=== PATIENT | female | born 1955 | race Caucasian/White ===

== ENCOUNTER 2016-11-25 17:07 | Emergency (ER) | payer BC, MEDICARE ==
[2016-11-25] MEDS ORDERED: EPINEPHrine 1 MG/ML AMP ONE ×2 (17:10→17:28)
[2016-11-25] MEDS ORDERED: METHYLPRED SOD SUCC 125 MG/2 ML VIAL ONE (17:10)
[2016-11-25] MEDS ORDERED: DIPHENHYDRAMINE 50 MG/ML VIAL ONE ×2 (17:11→19:03)
[2016-11-25] MEDS ORDERED: FAMOTIDINE 20 MG INJ ONE (17:12)
[2016-11-25] MEDS ORDERED: NEB-RACEPINEPH 0.5 ML INH ONE (17:23)
[2016-11-25] MEDS ORDERED: ALU/MAG/SIM 30 ML UDC ONE (18:22)
[2016-11-25] MEDS ORDERED: LIDOCAINE 2% VISC 15 ML UDC ONE (18:22)
== END 2016-11-25 20:38 | disposition home or self-care (01) ==
LOC: ER 17:07
CPT/HCPCS: 94640 ×2; 96361 ×2; 96374 ×2; 96375 ×2; 96376 ×2; 99283; J2930